=== PATIENT | male | born 1950 | race Caucasian/White ===

== ENCOUNTER → 2020-05-13 11:25 | Outpatient (CLI) | payer OTHER, SELFPAY ==
[2020-05-13 12:43] LABS: Add Manual Diff / Slide Review NO; Basophils Absolute Auto 0 /uL (0-100); Basophils Percent Auto 0.5 % (0-2); Eosinophils Absolute Auto 100 /uL (0-450); Eosinophils Percent Auto 0.9 % (2-4); Hematocrit 45.1 % (41-53); Lymphocytes Absolute Auto 1300 /uL (1100-4500); Lymphocytes Percent Auto 21.2 % (25-40); Mean Corpuscular HGB Conc 35.6 % (30-36); Mean Corpuscular Hemoglobin 33.6 PG (26-34); Mean Corpuscular Volume 94.5 fL (80-100); Monocytes Absolute Auto 400 /uL (0-900); Neutrophils Absolute Auto 4300 /uL (1500-7000); Neutrophils Percent Auto 70.4 % (50-75); Platelet Count 292 X10^3/uL (150-400); Red Blood Cell Count 4.78 X10^6/uL (4.5-5.9); White Blood Cell Count 6.1 X10^3/uL (4.5-11.0)
[2020-05-13 12:54] LABS: Carbon Dioxide 28 mmol/L (22-32); Chloride 101 mmol/L (98-107); HEMOLYSIS < 15 (0-50); Potassium 4.6 mmol/L (3.4-5.1); Sodium 137 mmol/L (137-145)
== END ==
PROVIDERS: PCP Family Medicine; Referring Provider Orthopaedic Surgery; Visit Provider Orthopaedic Surgery
DX: Z01.818 Encounter for other preprocedural examination (principal); Z01.812 Encounter for preprocedural laboratory examination
CPT/HCPCS: 36415; 80051; 85025; 93005

== ENCOUNTER → 2020-07-07 08:35 | Outpatient (CLI) | payer OTHER, SELFPAY ==
[2020-07-08 20:11] LABS: COVID19 Sendout Not Detected (Not Detect)
== END ==
PROVIDERS: PCP Family Medicine; Visit Provider Physician Assistant
DX: Z11.59 Encounter for screening for other viral diseases (principal)
CPT/HCPCS: 87635

== ENCOUNTER 2020-07-09 08:13 | Day surgery (SDC) | payer OTHER, SELFPAY ==
[2020-07-03 10:00] VITALS: BMI 30.4
[2020-07-09] VITALS (13 sets, daily range): BP systolic 91–142; BP diastolic 52–82; PULSE 47–65; RESP 11–18; TEMP 35.8–36.5; O2SAT 95–100; BMI 30.4
--- NOTE | 2020-07-09 06:00 | DI.RAD.S_ITS ---
PROCEDURE: XR PELVIS 1-2V INDICATIONS: post op films TECHNIQUE: Intra-operative view of the pelvis and hip acquired. COMPARISON: None. FINDINGS: Bones: Intraoperative devices prior to placement of arthroplasty prostheses are in expected positions. No fractures or suspicious bony lesions. Soft tissues: Overlying surgical retractors are present, along with other intraoperative changes. IMPRESSION: Normal alignment after right total hip arthroplasty. Dictated by: Trung Peoples M.D. on 07/09/2020 at 12:26 Approved by: Trung Peoples M.D. on 07/09/2020 at 12:27
[2020-07-09] MEDS: CELECOXIB 200 MG CAPSULE PO (08:53)
[2020-07-09] MEDS: ACETAMINOPHEN 325 MG TABLET 975 MG PO (08:53)
[2020-07-09] MEDS: LACTATED RINGERS 1,000 ML 42 ML IV ×2 (09:00→10:59)
--- NOTE | 2020-07-09 09:23 | PM.PREOP ---
Pre-operative Note COVID-19 COVID-19 status: Negative Result date/Date tested (Pos, Neg/Pending): 07/07/20 Interval Note History & Physical reviewed/Exam performed by Physician: Yes Changes to H&P: No
[2020-07-09] MEDS: CEFAZOLIN 2 GM/100 ML FROZ.PIGGY IV ×2 (09:54→17:57)
--- NOTE | 2020-07-09 10:27 | SUR.OPER ---
Lateral on padded OR bed. Gel axillary roll. Arms secured on padded armboard with pillow supporting top arm. Padded hip positioner braces x4 - anterior and posterior chest and pelvis. Additional gel pad used anterior pelvis. Gel pad under bottom leg from knee to foot and secured with tape over sheet.
[2020-07-09] MEDS: ROPIVACAINE 0.5% PF 5 MG/ML 20ML VIAL 60 ML INJ (10:38)
[2020-07-09] MEDS: MORPHINE 4 MG/ML INJ INJ (10:38)
[2020-07-09] MEDS: KETOROLAC 30 MG/ML VIAL IV (10:39)
--- NOTE | 2020-07-09 11:48 | P.OP_ITS ---
Operative Date/Time/Diagnoses Date of procedure: 07/09/20 Time of procedure: 11:48 Pre-op diagnosis: Right hip degenerative joint disease Post-op diagnosis: same Procedure & Clinicians Procedure: Right total hip arthroplasty (CPT code 66335 with assist) Same procedure as scheduled: Yes Indications: Patient is an 69-year-old male with severe right hip DJD. The patient has pain with activities and at rest, limited ambulation and activity tolerance, difficulties with ADLs, and failure of conservative treatment. We have discussed the nature of condition, treatment options, risks and benefits, and patient elects to proceed with total hip arthroplasty and gives informed consent. Surgeon: José Nash Dial Refinisher: Lee Boyd Anesthesia Type: Spinal Operative Notes Closure Type: primary Specimen(s): none sent Prosthetic devices, grafts, tissues, transplants, or devices: Acetabulum: A[employer]illo [employer] Nephew R3 acetabular component size 58 mm Femoral component: A[employer]illo [employer]hew Anthology stem size 7 with high offset Femoral head: 36 mm + 0 Oxinium Estimated Blood Loss (mL): 150 Procedure in detail: After satisfaction induction of anesthetic, and administration of IV antibiotics, the patient was positioned in the lateral decubitus position with all bony prominences well padded and pelvic position secured using a hip custodial maintenance worker positioning device. Right hip and lower extremity prepped and draped in the usual sterile fashion, then a longitudinal incision was created centered over the greater trochanter and carried sharply through the skin and subcutaneous tissues down to the fascia red which was divided longitudinally and retracted with a Charnley retractor. External rotators visualize, cut, tagged, and retracted posteriorly, then the capsule was cut in a T-type fashion with the corners tagged and retracted. Hip was dislocated and femoral neck cut made according to preoperative templating. Acetabular retractors then placed, and the acetabular labrum and osteophytes were excised. The acetabulum was then sequentially reamed to 57 mm with an excellent circumferential ream and fit with the trial. The trial component was removed and a permanent size 58 mm Astudillo [employer] Nephew R3 acetabular component was selected, positioned, and impacted with satisfactory position and fixation achieved. Permanent liner was then inserted with the elevated lip directed posteriorly. Soft tissue then removed off the lateral femoral neck in the lateral neck was entered using a box osteotome. T-handled reamers placed down the canal followed by sequential broaching to 7 with the final broach left in place for trial reduction which demonstrated excellent leg length, range of mot ion, and stability characteristics with a high offset neck and 36 mm +0 trial ball. The trial and broach were removed, and a permanent size 7 high offset Astudillo [employer] Nephew Anthology stem was selected and inserted with excellent position and fixation achieved. Another trial reduction yielded the above characteristics so the trial ball was exchanged for a permanent 36 mm +0 Oxinium ball. The hip was irrigated and reduced and excellent leg length range of motion and stability characteristics were achieved and maintained. Periarticular tissues were infiltrated with ropivacaine, morphine, Toradol. The hip was copiously irrigated, and the capsule repaired with #2 Ethibond, and the piriformis was repaired back to the greater trochanter with the same. Fascia red closed with interrupted #1 Ethibond sutures, and the subcutaneous tissues were closed in 2 layers of 0 Vicryl and 2 0 Vicryl. Skin was closed with saurav and sterile dressings applied. the anesthetic was terminated. Complications: none Post-operative Condition: stable Disposition: PACU Plan for aftercare: Patient will be admitted to the acute care [facility], and anticipate discharge on postop day 1 with follow-up in office in 10-14 days. Outpatient physical therapy will be arranged and patient will continue to observe posterior hip precautions. Patient will continue use of postoperative aspirin for DVT prophylaxis.
[2020-07-09] MEDS: LACTATED RINGERS 1,000 ML 125 ML IV ×2 (12:46→21:19)
--- NOTE | 2020-07-09 13:16 | PC.NURSE ---
Pt to room 210 via bed from PACU. Pt awake and oriented x 3. Denies pain, denies sensation below his knees. Able to move feet but cannot feel them moving. Pt oriented to room, call light, tv controls, and bed controls. IV infusing as ordered, scd's on and running, bed alarm on for safety and Pt agrees to not get up without assistance. Pt denies nausea or shortness of breath. O2 sat 100% on RA.
--- NOTE | 2020-07-09 14:09 | PT.IIE ---
Current Diagnoses Unilateral primary osteoarthritis, right hip (07/09/20) Surgery Performed Operation Date: 07/09/20 09:45 Actual Procedures p Total Hip Arthroplasty(Right) - José Nash MD Surgical History (Last Updated 07/03/20 @ 10:26 by Tracy Lunsford RN) Hx of hernia repair (Acute ~2009) Medical History (Last Updated 07/03/20 @ 12:59 by Tracy Lunsford RN) Diverticulitis (Acute ~2018) Encephalopathy (Acute 05/02/16) Gout (Acute) Head trauma (Acute 05/02/16) HLD (hyperlipidemia) (Acute) HTN (hypertension) (Acute) Osteoarthritis (Acute) PTSD (post-traumatic stress disorder) (Acute) TIA (transient ischemic attack) (Acute 01/14/20) Tinnitus (Acute) Vertigo (Acute) Physical Therapy Inpatient Evaluation/Re-Eval M1 PT/OT-IP Prior Functional Status Start: 07/09/20 16:21 Freq: NEEDED Status: Active Protocol: Document 07/09/20 14:09 AB (Rec: 07/09/20 16:42 AB [id number]) Medical Review Prior Functional Status Medical History Reviewed Yes Communication able to make needs known Mobility and Gait pt stated that he is modified independent with all mobilities and ambulation using SPC Social History Household Members spouse,children Living Arrangements House Number of Floors (Floors) Two Floors Number of Stairs To Enter/Railing? has no steps to enter but has 14 steps with L rail ascending to get to main level of the house Home Environment Standard Height Toilet,Walk in Shower,Tub/Shower Home Equipment Front Wheel Walker,Straight Cane,Raised Toilet Seat w/ Armrests,Grab Bars Near Toilet Additional Social History Comment spouse will be off work to assist pt pt also has his daughter to assist him at home M2 PT-IP Current Condition Start: 07/09/20 16:21 Freq: NEEDED Status: Active Protocol: Document 07/09/20 14:09 AB (Rec: 07/09/20 16:42 AB [email or web address]) Physical Therapy Current Condition Current Condition Evaluation Date 07/09/20 Treatment Diagnosis s/p R JASON posterior approach; difficulty in walking Onset Date 07/09/20 Precautions Posterior Hip Precautions No Hip Flexion > 90 degrees,No Hip Internal Rotation,No Hip Adduction Weight Bearing Status Weight Bearing Status Weight Bear as Tolerated Allowed Weight Bearing Amount (enter % RLE WBAT or #) (%) M3 PT-IP Subjective Start: 07/09/20 16:21 Freq: NEEDED Status: Active Protocol: Document 07/09/20 14:09 AB (Rec: 07/09/20 16:42 AB [email or web address]) Subjective Physical Therapy Visit Type Type Initial Evaluation Visit Start Time 14:09 Visit Stop Time 16:20 Total Visit Minutes 72 Notes pt seen for split visits: 1409 to 1441 and 1540 to 1620 Number of TERRAZZO GRINDER Visits 0 Physical Therapy Visit Comments Patient Comments pt is agreeable to do PT Therapy Pain Assessment Pain When Pain Assessed During Mobility Pain Present Pain Present Pain Reported Location Right Hip Intensity 7 Scale Used Numeric (0 - 10) Pain Management Techniques Apply Cold,Modification of Treatment,Re-positioning, Timing of Activity with Medications M4 PT-IP Mobility and Gait Start: 07/09/20 16:21 Freq: NEEDED Status: Active Protocol: Document 07/09/20 14:09 AB (Rec: 07/09/20 16:42 AB [email or web address]) PT-Bed Mobility Assessment Supine to Sit Supine to Sit Standby Assistance Scooting Scooting to Edge of Bed Standby Assistance PT-Transfer Assessment Sit to and From Stand Sit to and from Stand Contact Guard Assistance, Minimal Assistance,1 Person Assistance Equipment Transfer Assistive Device Gait Belt,Front Wheeled Walker Orthotic/Prosthetic Devices or Brace: No Transfers Transfer Destination Chair Transfer Technique ambulated using FWW Transfer Ability Level of Assist Minimal Assistance,1 Person Assistance,Use of Upper Extremities Comments Mobility Comments pt educated on hip precautions . obtained home set up and PLOF and assessed strength and sensation and pt is still numb on his legs. informed pt that PT will check back later when sensation is better. checked on pt after one hour and pt stated that he is ready . reviewed hip precautions and pt was able to recall. completed supine to sit SBA and cues. pt was able to sit on EOB SBA. completed sit to stand min A and max cues. educated pt on techniques. completed sit <>stand again x 3 reps min A but able to complete CGA after first 2 reps. pt ambulated in room min A and cues for safety. pt agreed to sit up on chair afterwards. completed sit <>stand from chair x 2 reps CGA and cues. positioned pt on chair. call light and table placed within reach. Gait Assessment Gait Gait Assistance Required: Contact Guard Assist,Minimum Assistance,1 Person Assist Distance (Feet) 75 Able to Maintain Weight Bearing Status Yes During Gait Assistive Devices Assistive Device Gait Belt,Front Wheeled Walker Orthotic/Prosthetic Devices or Brace: No Gait Deviations General Gait Pattern Antalgic,Decreased Stride Length,Decreased Feet Clearance Factors Limiting Gait Function Factors Limiting Gait Function Decreased Activity Tolerance, Decreased Sensation,Decreased Strength,Limited Range of Motion,Pain,Poor Balance,Poor Safety Awareness Comments Gait Comments pt requiring min A with initial ambulation but able to complete with only CGA [facility] during ambulation. PT-Balance Assessment Sitting Balance and Reactions Static Sitting Balance Ability Normal Dynamic Sitting Balance Ability Normal Standing Balance and Reactions Static Standing Balance Ability Fair Dynamic Standing Balance Ability Fair Device Used FWW M5 PT-IP Objective Assessments Start: 07/09/20 16:21 Freq: NEEDED Status: Active Protocol: Document 07/09/20 14:09 AB (Rec: 07/09/20 16:42 [email or web address]) Orientation Orientation/Cognition Level of Alertness Alert Orientation Name,Age,Birthday,Month,Date, Year,Day of Week,Place, Situation Safety Awareness Understands Safety Issues Memory Description Short Term Impaired Gross Range of Motion Lower Extremity ROM Assessment Within Functional Limits Strength Lower Extremity Strength Assessment Right Impaired Hip 4-/5 Knee 4+/5 Coordination Assessment Gross Coordination Gross Coordination WNL Sensation Assessment Comments Sensation Comments pt stated that buttocks is still numb and feet are still slightly numb Muscle Tone Muscle Tone WNL Yes M6 PT-IP Treatment Start: 07/09/20 16:21 Freq: NEEDED Status: Active Protocol: Document 07/09/20 14:09 AB (Rec: 07/09/20 16:42 AB [email or web address]) Physical Therapy Treatment Education Education Provided Precautions,Weight Bearing Status,Post-Op Packet,Safety M7 PT-IP Assessment and Plan Start: 07/09/20 16:21 Freq: NEEDED Status: Active Protocol: Document 07/09/20 14:09 AB (Rec: 07/09/20 16:42 [email or web address]) PT Summary Assessment and Plan Potential Rehabilitation Potential Good Status of Condition at Evaluation Stable Summary Impairments Pain,ROM,Strength,Balance, Coordination,Sensation,Tone, Cognition,Bed Mobility, Transfers,Gait,Activity Tolerance Assessment Summary pt requiring CGA to min A with mobility. pt s/p R JASON and just had surgery this morning and will likely progress with mobility during hospital stay. pt plans to go home and will have his family to assist him . pt also is scheduled for outpt PT. will have to conduct caregiver training if appropriate and also complete stair climbing training prior to d/c home. Goals Bed Mobility Goal Independent Transfer Goal Independent,Front Wheeled Walker Gait Goal Independent,Front Wheel Walker Gait Distance 150 Other Goals up/down 14 steps L rail ascending SBA Days to Meet Goals 5 Frequency of Treatment Frequency Of Treatment Twice a Day Treatment Plan Physical Therapy Treatment Plan Bed Mobility Training,Transfer Training,Gait Training, Therapeutic Exercise,Balance Retraining,Post Op Education, Discharge Planning,Hot or Cold Pack,Neuromuscular Re-ed, Coordination Retraining,Manual Therapy Recommendations To Nursing Amount of Assist Needed 1 Person Assist Discharge Recommendations PT Discharge Recommendations Home with Assistance, Outpatient PT Transportation Needs at Discharge Private Vehicle
[2020-07-09] MEDS: ACETAMINOPHEN 325 MG TABLET 650 MG PO ×2 (14:42→21:17)
[2020-07-09] MEDS: hydrOXYzine pamoate 25 MG CAPSULE PO ×2 (16:46→21:17)
[2020-07-09] MEDS: OXYCODONE IR 5 MG TABLET PO ×2 (16:46→21:17)
[2020-07-09] MEDS: ATORVASTATIN 20 MG TABLET 40 MG PO (21:18)
[2020-07-09] MEDS: DOCUSATE 100 MG CAPSULE PO (21:18)
[2020-07-10] VITALS: BP 116/70; PULSE 66; RESP 16; TEMP 36.7; O2SAT 98
[2020-07-10] MEDS: HYDROCODONE/ACET 5/325 TABLET 1 TAB PO (01:56)
[2020-07-10] MEDS: CEFAZOLIN 2 GM/100 ML FROZ.PIGGY IV (01:56)
[2020-07-10] MEDS: OXYCODONE IR 5 MG TABLET PO (03:47)
[2020-07-10] MEDS: hydrOXYzine pamoate 25 MG CAPSULE PO (03:47)
[2020-07-10 04:04] VITALS: BP 119/65; PULSE 63; RESP 16; TEMP 36.4; O2SAT 98
[2020-07-10 05:52] LABS: Hematocrit 33.6 % (41-53); Hemoglobin 11.6 g/dL (13.5-17.5)
[2020-07-10 07:28] VITALS: BP 113/63; PULSE 61; RESP 17; TEMP 36.6; O2SAT 98
[2020-07-10] MEDS: ACETAMINOPHEN 325 MG TABLET 650 MG PO (08:41)
[2020-07-10] MEDS: ASPIRIN EC 81 MG TABLET PO (08:42)
[2020-07-10] MEDS: hydroCHLOROthiazide 25 MG TABLET PO (08:42)
[2020-07-10] MEDS: OXYCODONE IR 10 MG TABLET PO (08:42)
[2020-07-10] MEDS: DOCUSATE 100 MG CAPSULE PO (08:42)
--- NOTE | 2020-07-10 08:56 | CM.DANOTE ---
Addendum entered by Serenity Drummond LPN 07/10/20 11:44: A check in now shows that pt was seen as planned by PT and left for home setting before Rounding was even completed. No d/c concerns noted by the care team members. Original Note: Discharge Planning/Care Management DCP: assessment: case received, EMR reviewed, d/c order noted for today although no physician note is yet available for today. Pt is a 69 year old male who admitted yesterday for a planned R JASON/posterior approach. Payer: [employer] PCP: Jerman Beverly Surgeon: Dr. Nash Pt did see PT yesterday late afternoon for first eval. Caregiver training is planed for today as well as work on stairs (pt has 14 to main level of home). P: Will discuss in Team Rounds and meet later today with pt to check on any d/c needs. Unclear is he will need DME. He does have a single point cane that he uses prior to surgery. CM Discharge Assessment Start: 07/10/20 08:54 Freq: Status: Active Protocol: Document 07/10/20 08:55 ITV (Rec: 07/10/20 08:56 ITV [id number]) Discharge Planning Assessment Advance Directives? No: does not have or want Advance Directives on File No History Provided By Medical Record Prior Living Arrangements House Household Members spouse,children Comment daughter: Yi Independent with ADL's Yes Is patient alert and oriented? 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 History of head injury 2016, TIA 01/14/20. Medical records from these two admits to [facility], scanned to record Preferred Name [facility] Patient Information Reviewed Via Phone Assessment Assessment Completed With Patient Diagnostic Results CBC,EKG,Electrolytes Comment Labs/EKG @ [facility] 05/13/20 COVID screen @ [facility] 07/06/20 Primary Care Provider Jerman Beverly Seen Specialist in Last 12 Months Yes Specialist Seen Orthopedist,Other Comment PCP pre-op/clearance 05/27/20, Neuro visit 02/23/19 scanned to record Primary Language Urdu Yard Clerk Required No Height 182.88 cm Weight 101.605 kg Body Mass Index (BMI) 30.4 Hearing Ability Normal Visual Assist Magnifying Glass Dentition Type Teeth, Natural Present,Full- Upper Comment Pt denies any learning barriers Hx Anesthesia Reactions No Hx Family Anesthesia Reaction No Hx Malignant Hyperthermia No Hx Blood Transfusions No Anesthesia Review Requested No alcohol intake current alcohol intake frequency a few times a week Smoking Status Current every day smoker Tobacco type cigarettes Smoking cigarettes per day 4 Has it been 2 weeks or less since Yes patient quit smoking how long ago did patient quit smoking Quit approx 05/28/20 Substance Use Type other Comment THC/CBD pill Pain Present Pain Reported Musculoskeletal Symptoms Abnormal Gait,Back Pain, Difficulty Walking,Joint Pain History of Falling (Recent or History of Yes ) Patient is completely paralyzed or No completely immobile Prosthesis or Orthotic Device Cane Mental Status Oriented to own ability Is patient on oxygen? No Does patient have MORRIS/SOB No Hx Sleep Apnea No Suspected Sleep Apnea Yes: Stop Bang positive Currently Taking a Beta Maxi No Can You Climb a Flight of Stairs Without No SOB Hx Chest Pain No Hx SOB No Hx Syncope or Dizziness No Anti-Coagulant Therapy Yes: ASA 81mg daily for hx of TIA-pt will check w/PCP if needs to hold Has a Acting Section Chief No Cardiac Testing No Hx Pacemaker/ICD No Pacemaker Rep Required? No Cardiac Clearance Received Not Applicable Diet Type At Home Regular dysphagia No Bladder Pattern Nocturia Urinary Catheter Present No Hx Urinary Self Catheterization No Diabetes No Hx Drug Resistant Organism No Presence of External or Internal Medical No Devices Have you had any close contact with No someone diagnosed with COVID-19? Marital Status Lives With spouse,children Prior Living Arrangements House Number of Floors (Floors) Two Floors Support System Child/Children,Spouse Does the Patient Have Assistance After Yes Surgery Patient Discharge Plan Description Return Home Comment Pt advised 1 day length of stay per surgeon Feels Safe in Current Environment Yes Been Physically Hurt or Threatened By a No Person in Current Environment Do you have thoughts of harming yourself None or others? Are you currently considering suicide? No Do you have a plan to hurt yourself or No Plan others? Do You Have Any Spiritual Beliefs That No May Affect Your HC Choices? Do You Have Any Cultural Practices That No May Affect Your HC Choices? Comment Protestant Who Can We Speak to About Patient's Care Family, friends Identifying Code for Release of Patient Declines to issue Information Health Care Proxy/Next of Kin Violeta () or Yi ( daughter) Health Care Proxy Phone Number Violeta: [phone] Yi: [phone] Emergency Contact Name Violeta () or Yi ( daughter) Emergency Contact Phone Number Violeta: [phone] Yi: [phone] Advance Directives? No Power of Manganese Wheeler No PAC Instructions Durable medical equipment, Medications to take/avoid, Nasal antibiotic,No ETOH/ petroleum product on skin DOS, NPO,Post-op transportation,Pre -surgical wash,Sturdy shoes/ comfortable clothes,Do not bring valuables and remove jewelry Stop Bang Assessment Do you snore loudly (louder than talking Yes or loud enough to be heard through closed doors) Do you often feel tired, fatigued or Yes sleepy during the daytime Has anyone ever observed you stop Yes breathing while sleeping? Do you have, or are you being treated Yes for, high blood pressure Is your BMI more than 35 kg/m2 No Age over 50 Yes Estimated neck circumference greater Yes than 40cm or 16in Gender male Yes Result Positive
--- NOTE | 2020-07-10 09:20 | PT.IPTN ---
Current Diagnoses Unilateral primary osteoarthritis, right hip (07/09/20) Surgery Performed Operation Date: 07/09/20 09:45 Actual Procedures p Total Hip Arthroplasty(Right) - José Nash MD Physical Therapy Treatment Note M2 PT-IP Current Condition Start: 07/09/20 16:21 Freq: NEEDED Status: Discharge Protocol: Document 07/09/20 14:09 AB (Rec: 07/09/20 16:42 AB [id number]) Physical Therapy Current Condition Current Condition Evaluation Date 07/09/20 Treatment Diagnosis s/p R JASON posterior approach; difficulty in walking Onset Date 07/09/20 Precautions Posterior Hip Precautions No Hip Flexion > 90 degrees,No Hip Internal Rotation,No Hip Adduction Weight Bearing Status Weight Bearing Status Weight Bear as Tolerated Allowed Weight Bearing Amount (enter % RLE WBAT or #) (%) M3 PT-IP Subjective Start: 07/09/20 16:21 Freq: NEEDED Status: Discharge Protocol: Document 07/10/20 08:56 KS (Rec: 07/10/20 12:51 KS [id number]) Subjective Physical Therapy Visit Type Type Treatment Note Visit Start Time 08:56 Visit Stop Time 09:20 Total Visit Minutes 24 Number of [employer] Visits 1 Physical Therapy Visit Comments Patient Comments Pt agreeable to work w/ therapy. Therapy Pain Assessment Pain When Pain Assessed During Mobility Pain Present Pain Present Pain Reported Location Right Hip Intensity 3 Scale Used Numeric (0 - 10) Description Aching,Tightness Pain Behaviors Guarding Pain Management Techniques Re-positioning,Timing of Activity with Medications M4 PT-IP Mobility and Gait Start: 07/09/20 16:21 Freq: NEEDED Status: Discharge Protocol: Document 07/10/20 08:56 KS (Rec: 07/10/20 12:51 KS [id number]) PT-Bed Mobility Assessment Supine to Sit Supine to Sit Standby Assistance Sit to Supine Sit to Supine Standby Assistance Scooting Scooting to Edge of Bed Standby Assistance PT-Transfer Assessment Sit to and From Stand Sit to and from Stand Standby Assistance,1 Person Assistance,Use of Upper Extremities Equipment Transfer Assistive Device Gait Belt,Front Wheeled Walker Orthotic/Prosthetic Devices or Brace: No Transfers Transfer Destination Bed,Chair Transfer Technique ambulated using FWW Transfer Ability Level of Assist Standby Assistance,Contact Guard Assistance,1 Person Assistance,Use of Upper Extremities Comments Mobility Comments Pt standing upon arrival from therapy. Pt then ambulated w/ FWW ~100 ft to stairs w/ CBA and cues for knee flexion and upright posture. Pt then completed 15 total steps w/ step to pattern L rail and SPC in R hand, only required min cues on first set of 3 steps for sequencing. Pt admitted to slight fatigue after performing steps, but ambulated additional ~100 ft back to room SBA. Pt then transferred into and out of bed SBA w/ use of gait belt to self assist RLE into bed. Pt then ambulated to and transferred to chair SBA. Pt states he feels safe to return home and left in chair w/ all needs in reach. Gait Assessment Gait Gait Assistance Required: Standby Assistance,1 Person Assist Distance (Feet) 200 Able to Maintain Weight Bearing Status Yes During Gait Assistive Devices Assistive Device Gait Belt,Front Wheeled Walker Orthotic/Prosthetic Devices or Brace: No Gait Deviations General Gait Pattern Antalgic,Decreased Stride Length,Decreased Feet Clearance Factors Limiting Gait Function Factors Limiting Gait Function Decreased Activity Tolerance, Decreased Sensation,Decreased Strength,Limited Range of Motion,Pain,Poor Balance,Poor Safety Awareness Comments Gait Comments Pt ambulated ~200 total ft w/ SBA and FWW. Min cues for knee flexion and upright posture. Stair Climbing Assessment Evaluation Level of Assist On Stairs Standby Assistance,1 Person Assistance Devices Stair Climbing Assistive Devices Straight Cane,Left Railing Technique/Endurance Stair Climbing Direction Ascend and Descend Stair Climbing Technique Step to Step Number of Steps Climbed 3 Stair Climbing Set # Repetitions (reps) 5 Comments Stair Climbing Comments Pt ascended/descended 15 total steps w/ L rail and SPC in RUE SBA. Pt needed min cues on first set of stairs for sequencing. Demonstrated good safety awareness and no LOB. Pt slighty fatigued after stair training. PT-Balance Assessment Sitting Balance and Reactions Static Sitting Balance Ability Normal Dynamic Sitting Balance Ability Normal Standing Balance and Reactions Static Standing Balance Ability Good Dynamic Standing Balance Ability Fair Device Used FWW M5 PT-IP Objective Assessments Start: 07/09/20 16:21 Freq: NEEDED Status: Discharge Protocol: Document 07/09/20 14:09 AB (Rec: 07/09/20 16:42 AB [id number]) Orientation Orientation/Cognition Level of Alertness Alert Orientation Name,Age,Birthday,Month,Date, Year,Day of Week,Place, Situation Safety Awareness Understands Safety Issues Memory Description Short Term Impaired Gross Range of Motion Lower Extremity ROM Assessment Within Functional Limits Strength Lower Extremity Strength Assessment Right Impaired Hip 4-/5 Knee 4+/5 Coordination Assessment Gross Coordination Gross Coordination WNL Sensation Assessment Comments Sensation Comments pt stated that buttocks is still numb and feet are still slightly numb Muscle Tone Muscle Tone WNL Yes M6 PT-IP Treatment Start: 07/09/20 16:21 Freq: NEEDED Status: Discharge Protocol: Document 07/10/20 08:56 KS (Rec: 07/10/20 12:51 KS [id number]) Physical Therapy Treatment Education Education Provided Precautions,Weight Bearing Status,Post-Op Packet,Safety M7 PT-IP Assessment and Plan Start: 07/09/20 16:21 Freq: NEEDED Status: Discharge Protocol: Document 07/10/20 08:56 KS (Rec: 07/10/20 12:51 KS [id number]) PT Summary Assessment and Plan Potential Rehabilitation Potential Good Status of Condition at Evaluation Stable Summary Impairments Pain,ROM,Strength,Balance, Coordination,Sensation,Tone, Cognition,Bed Mobility, Transfers,Gait,Activity Tolerance Progress Towards Goals Progressing Toward Goals Assessment Summary Pt SBA for all mobility, transfers, ambulation, and stair training today w/ FWW. Pt required min A for sequencing, knee flexion during ambulation, and upright posture. Pt completed 15 steps and ~200 ft ambulation. Pt has outpatient rehab set up and support and feels safe to return home. Goals Bed Mobility Goal Independent Transfer Goal Independent,Front Wheeled Walker Gait Goal Independent,Front Wheel Walker Gait Distance 150 Other Goals up/down 14 steps L rail ascending SBA Days to Meet Goals 5 Frequency of Treatment Frequency Of Treatment Twice a Day Treatment Plan Physical Therapy Treatment Plan Bed Mobility Training,Transfer Training,Gait Training, Therapeutic Exercise,Balance Retraining,Post Op Education, Discharge Planning,Hot or Cold Pack,Neuromuscular Re-ed, Coordination Retraining,Manual Therapy Recommendations To Nursing Amount of Assist Needed 1 Person Assist Discharge Recommendations PT Discharge Recommendations Home with Assistance, Outpatient PT Transportation Needs at Discharge Private Vehicle
--- NOTE | 2020-07-10 09:48 | PC.NURSE ---
Pt dressed and all belongings with pt, nurse reviewed discharge instructions, advised stroke precautions, post op precautions reviewed, and pt given Rx hard copies to take to pharmacy, pt advised to take stool softeners and drink plenty of fluids, pt agreeable. Pt wheeled out to entrance by [employer] to go home with family.
== END 2020-07-10 09:59 | disposition home or self-care (01) ==
LOC: OR 08:16 → AC 08:17
PROVIDERS: PCP Family Medicine; Referring Provider Family Medicine; Visit Provider Orthopaedic Surgery
PROC: 0SR90JZ Replacement of Right Hip Joint with Synthetic Substitute, Open Approach (ICD-10-PCS; CPT 27130; principal; 2020-07-09 09:45)
DX: M16.11 Unilateral primary osteoarthritis, right hip (principal)
CPT/HCPCS: 27130; 36415; 36592; 72170; 85014; 85018; 94762; 97116; 97161; 97530; C1776; J0690; J1885; J2250; J2270; J3010